=== PATIENT | male | born 1975 | race Hispanic/Latino ===

== ENCOUNTER 2017-11-15 07:37 | Day surgery (SDC) | payer OTHER ==
[2017-11-14 10:56] VITALS: BMI 29.0
[2017-11-15] MEDS ORDERED: Midazolam HCl 2 mg/2 ml Vial ONE (10:01)
[2017-11-15] MEDS ORDERED: Fentanyl 100 MCG/2 ML VIAL ONE ×2 (10:01→11:21)
[2017-11-15] MEDS ORDERED: Bacitracin Zinc Ointment 30 gm TUBE ONE (10:04)
[2017-11-15] MEDS ORDERED: Lidocaine 1% w/Epinephrine 1:100K 30 ML VIAL ONE (10:04)
[2017-11-15] MEDS ORDERED: Oxymetazoline HCl 0.05% ( 15 ML ) ONE (10:04)
[2017-11-15] MEDS ORDERED: Ketorolac Tromethamine 30 MG/ML VIAL ONE (11:21)
--- NOTE | 2017-11-15 12:23 | EKG ---
Test Reason : PREOP Blood Pressure : / mmHG Vent. Rate : 067 BPM Atrial Rate : 067 BPM P-R Int : 134 ms QRS Dur : 096 ms QT Int : 402 ms P-R-T Axes : 042 -05 012 degrees QTc Int : 424 ms Normal sinus rhythm Minimal voltage criteria for LVH, may be normal variant Borderline ECG No previous ECGs available Confirmed by LITTLE REN ([id number]) on 11/15/2017 12:22:40 PM Referred By: GILES Confirmed By:LITTLE REN
[2017-11-15] MEDS ORDERED: Dexamethasone 20 MG/5 ML VIAL ONE (12:44)
[2017-11-15] MEDS ORDERED: Ondansetron HCl/PF 4 MG/2 ML Vial ONE (12:44)
[2017-11-15] MEDS ORDERED: PROPOFOL 200 MG/20 ML VIAL ONE (12:44)
[2017-11-15] MEDS ORDERED: Lidocaine 1% PF 5 ML VIAL ONE (12:44)
[2017-11-15] MEDS ORDERED: Glycopyrrolate 0.2 MG/ML 5 ML SYRINGE ONE (12:44)
--- NOTE | 2017-11-16 10:47 | OP ---
PREOPERATIVE DIAGNOSES: 1. Nasal septal deviation. 2. Bilateral inferior turbinate hypertrophy. 3. Nasal obstruction. POSTOPERATIVE DIAGNOSES: 1. Nasal septal deviation. 2. Bilateral inferior turbinate hypertrophy. 3. Nasal obstruction. PROCEDURES: 1. Nasal septoplasty. 2. Bilateral inferior turbinate submucosal resection. SURGEON: Shayne Nash M.D. ESTIMATED BLOOD LOSS: 20 mL. COMPLICATIONS: None. ANESTHESIA: GETA. PROCEDURE IN DETAIL: Patient was taken to the operating room and placed supine on the table. General endotracheal anesthesia was obtained by the Anesthesia staff. Tube was secured in the left lower lip. Patient was then placed in the beach chair position, and Afrin pledgets were placed in the nasal cav ity. Injections of 1% lidocaine with 1:100,000 epinephrine were made into the nasal septum as well as the inferior turbinates. Patient was then prepped and draped in standard surgical fashion for nasal surgery. Following this, the Afrin pledgets were removed. A Dawit incision was made on the left xena al septum. Submucoperichondrial dissection was performed. The deviated portions of the septum include d portions of the cartilage and the bony septum. These isolated areas were removed using three cuttin g rongeurs. There was noted to be a large dorsal and caudal strut, left intact for support of the nos e. The mucoperichondrial flaps were then reapproximated using a 4-0 gut stitch. Any straight pieces o f cartilage were crushed prior to this and placed between the mucoperichondrial flaps. Following this , the inferior turbinates were then punctured with a submucosal coblation wand, and submucosal coblat ions were performed of multiple areas of the inferior portion of the anterior inferior turbinate. Please note that the submucosal microdebrider was used to submucosally resect the anterior and inferi or portions of the inferior turbinates bilaterally. Patient tolerated the procedure well.
== END 2017-11-15 13:12 | disposition home or self-care (01) ==
LOC: SDC 07:37
PROVIDERS: ATTEND Otolaryngology Plastic Surgery within the Head & Neck
PROC: 09TL0ZZ Resection of Nasal Turbinate, Open Approach (ICD-10-PCS; principal; 2017-11-15)
PROC: 09SM0ZZ Reposition Nasal Septum, Open Approach (ICD-10-PCS; principal; 2017-11-15)
DX: J34.2 Deviated nasal septum (principal); J34.3 Hypertrophy of nasal turbinates; J34.89 Other specified disorders of nose and nasal sinuses; J35.1 Hypertrophy of tonsils
CPT/HCPCS: 93005; 93010; J1100; J1885; J2001; J2250; J2405; J2704; J3010